=== PATIENT | female | born 1990 | race Caucasian/White ===

== ENCOUNTER 2017-09-12 15:00 | Outpatient (CLI) | payer OTHER | END 2017-09-12 15:01 | disposition home or self-care (01) | LOC: BICRAD 15:00 | PROVIDERS: ATTEND Internal Medicine | DX: Z02.71 Encounter for disability determination (principal); M41.84 Other forms of scoliosis, thoracic region | CPT/HCPCS: 72070 ==

== ENCOUNTER 2018-09-10 06:50 | Inpatient (IN) | payer OTHER ==
[2018-09-10 07:30] VITALS: BMI 30.1
[2018-09-10] MEDS ORDERED: Lactated Ringer's 1,000 ML IV PRN (12:06)
[2018-09-10] MEDS ORDERED: NS / Oxytocin 40 units/1000ml 1,000 ML IV PRN (12:06)
[2018-09-10] MEDS ORDERED: Methylergonovine 0.2 MG/ML VIAL IM PRN ×2 (12:06→22:54)
[2018-09-10] MEDS ORDERED: Ibuprofen 800 MG TAB PO PRN (12:30)
[2018-09-10] MEDS ORDERED: Misoprostol 200 MCG TAB PR PRN (12:30)
[2018-09-10] MEDS ORDERED: HYDROcodone/Acetaminophen 5/325 mg Tablet PO PRN ×4 (12:30→22:54)
[2018-09-10] MEDS ORDERED: Promethazine HCl 25 MG/ML VIAL IM PRN (12:30)
[2018-09-10] MEDS ORDERED: Lidocaine 1% (PF) 30 ML VIAL SC PRN (12:30)
[2018-09-10] MEDS ORDERED: Ondansetron PF 4 MG/2 ML Vial IVP PRN ×2 (12:30→22:54)
--- NOTE | 2018-09-10 12:38 | PDOC.LDHP ---
Labor and Delivery H&P Chief complaint: contractions HPI: rodeint has been bhaskar all night, starting at 2100. She was able to sleep until 0300, but her contractiosn got stronger and woke her up. She denies LOF, VB. The baby has been moving normally. Current gestational age (weeks): 41 Due date: 08/31/18 Dating criteria: last menstrual period Grav: 2 Para: 1 Current complications: none Abnormal US findings: No Past Medical History: Scoliosis Current medications: pre- vitamins Previous surgical history: none Allergies/Adverse Reactions: Allergies Allergy/AdvReac Type Severity Reaction Status Date / Time penicillin G Allergy Unknown Verified 09/10/18 07:30 Social history: none - Physical Exam Vital signs reviewed and normal: yes General: breathing through contractions Heart: RRR Lungs: nonlabored breathing Abdomen: gravid Extremeties: trace edema FHT: category 1 - Vaginal Exam cm dilated: 3 Effacement: 75% Station: -2 - OB Labs Blood type: A RH: positive Antibody Screen: negative HIV: negative RPR: negative HEPSAg: negative 1 hour GCT: negative GBS: negative Urine drug screen: negative - Assessment L&D Assessment: term patient in labor early labor - Plan Plan: admit to L&D -: Admit to low intervention. Expectant management in early labor. Anticipate .
[2018-09-10 13:26] LABS: Hemoglobin 13.8 g/dL (12.0-16.0); Mean Corpuscular HGB CONC 33.5 g/dL (32.0-36.0); Mean Corpuscular Hemoglobin 30.1 pg (27.0-31.0); Mean Platelet Volume 7.9 fL (7.4-10.4); Platelet Count 251 thou/uL (130-400); Red Blood Cell (RBC) Count 4.57 mill/uL (4.20-5.40); White Blood Cell (WBC) Count 13.1 thou/uL (4.8-10.8)
[2018-09-10 14:32] LABS: Syphilis Antibody Nonreactive (Nonreactive); Syphilis Antibody Index 0.05 S/CO (<1.00 Non-Reactive)
[2018-09-10 16:00] LABS: HBSAg Index 0.31 S/CO (0-0.99); Hep B Surf Ag Non-Reactive S/CO (NonReactive)
[2018-09-10] MEDS ORDERED: Oxytocin 10 UNITS/ML VIAL ONE (17:18)
[2018-09-10] MEDS ORDERED: NS / Oxytocin 40 units/1000ml 1,000 ML ONE (17:18)
--- NOTE | 2018-09-10 19:46 | PDOC.OPDEL ---
OB Operative/Delivery Note Delivery Dr/Surgeon: Ant Yu Pre-Delivery Diagnosis: active labor Procedure/Post Delivery Dx: spontaneous vaginal delivery Weeks gestation: 41 Anesthesia: none - Findings A Sex: female Weight: 8 lb 13 oz - 1 min: 8 - 5 min: 9 - Additional Findings/Plan Placenta delivered: spontaneous Repaired Obstetrical Laceration: none Estimated blood loss: 100mL Compilations/Other Findings: Light Mec. Delayed cord clamping Post delivery plan: routine recovery
[2018-09-10] MEDS ORDERED: Milk Of Magnesia 30 ML UDCUP PO PRN (22:54)
[2018-09-10] MEDS ORDERED: NS / Oxytocin 40 units/1000ml 1,000 ML IV SCH (22:54)
[2018-09-10] MEDS ORDERED: Benzocaine-Menthol 82.5 ML CAN TOP PRN (22:54)
[2018-09-10] MEDS ORDERED: Adacel (T-DAP) 0.5 ML SYRINGE IM ONE (22:54)
[2018-09-10] MEDS ORDERED: Bisacodyl 10 MG SUPP PR PRN (22:54)
[2018-09-10] MEDS: Ibuprofen 800 MG TAB PO SCH (23:29)
[2018-09-11] MEDS: Ibuprofen 800 MG TAB PO SCH ×2 (05:44→13:18)
[2018-09-11] MEDS ORDERED: Docusate Calcium (SURFAK) 240 MG CAP PO SCH (09:00)
[2018-09-11] MEDS ORDERED: Prenatal Vitamin 1 TAB PO SCH (09:00)
[2018-09-11] MEDS: Ferrous Sulfate 325 MG TAB PO SCH ×2 (09:06→16:08)
--- NOTE | 2018-09-11 16:44 | PDOC.PP ---
Post Progress Note Post Day #: 1 Subjective: doing well. Would like to go home tonight if is discharged. Some cramping. is going ok, she saw twice. PO intake tolerated: yes Flatus: yes Ambulation: yes Vital Signs (12 hours) Temp Pulse Resp BP Pulse Ox 09/11/18 11:43 97.5 F L 103 H 14 114/58 L 98 09/11/18 08:17 98.6 F 93 20 114/72 100 09/11/18 08:10 100 09/11/18 05:40 98.0 F 101 H 18 121/67 Weight Weight 198 lb - Physical Examination General: NAD Cardiovascular: no m/r/g Respiratory: non-labored breathing Abdominal: lochia (minimal) Fundus firm & at: -1 Extremities: negative homans (B) Neurological: no gross focal deficits Psychiatric: A&Ox3, normal affect Result Diagrams: 09/10/18 13:17 Additional Labs: Post Labs Blood Type A POSITIVE 09/10/18 13:17 Hep Bs Antigen Non-Reactive S/CO (NonReactive) 09/10/18 13:17 (1) (spontaneous vaginal delivery) Code(s): O80 - ENCOUNTER FOR FULL-TERM UNCOMPLICATED DELIVERY Status: Acute (2) Post-dates Code(s): O48.0 - POST-TERM Status: Acute (3) Post-dates , delivered, current hospitalization Code(s): O48.0 - POST-TERM Status: Acute - Assessment/Plan A: G2 now P2 s/p , NML PPD #1 exam, P: discharge home today if is discharged.
[2018-09-11 20:31] VITALS: BP 117/74; TEMP 98.2
== END 2018-09-11 21:15 | disposition home or self-care (01) | DRG 807 ==
LOC: L&D/OP 06:50 → L&D-LIB 13:30 → 3SW 22:39
PROVIDERS: ADMIT Student in an Organized Health Care Education/Training Program; ATTEND Student in an Organized Health Care Education/Training Program
PROC: 10E0XZZ Delivery of Products of Conception, External Approach (ICD-10-PCS; principal; 2018-09-11)
DX: O48.0 Post-term pregnancy (principal); Z37.0 Single live birth; Z3A.41 41 weeks gestation of pregnancy
CPT/HCPCS: 36415; 85027; 86780; 86850; 86900; 86901; 87340; 99285; J2590